=== PATIENT | female | born 1985 | race Asian ===

== ENCOUNTER 2018-01-07 04:40 | Inpatient (IN) | payer SELFPAY ==
[~2018-01-07] VITALS: Ht 157.5 cm; Wt 68.9 kg
[2018-01-07] MEDS ORDERED: OXYTOCIN/0.9 % SODIUM CHLORIDE 1,000 ML IV ONE ×2 (04:59→07:17)
[2018-01-07] MEDS ORDERED: AMPICILLIN SODIUM 2 GM in NS 100 ML IV ONE (05:00)
[2018-01-07] MEDS ORDERED: AMPICILLIN SODIUM 2 GM VIAL ONE (05:01)
[2018-01-07] MEDS ORDERED: LR 1,000 ML IV SCH (06:40)
[2018-01-07] MEDS ORDERED: OXYTOCIN/0.9 % SODIUM CHLORIDE 1,000 ML IV SCH (06:40)
[2018-01-07] MEDS ORDERED: LR 1,000 ML IV ONE (06:40)
[2018-01-07] MEDS ORDERED: LR 500 ML IV ONE (06:40)
[2018-01-07] MEDS ORDERED: NALBUPHINE HCL 10 MG/ML AMP IM PRN (06:45)
[2018-01-07] MEDS ORDERED: TERBUTALINE SULFATE 1 MG/ML VIAL SUBCUT ONE (06:45)
[2018-01-07] MEDS ORDERED: METHYLERGONOVINE MALEATE 0.2 MG TABLET PO PRN (07:30)
[2018-01-07] MEDS ORDERED: RHO(D) IMMUNE GLOBULIN/MALTOSE 1500 UNITS/1.3 ML (WINHRO) IM PRN (07:30)
[2018-01-07] MEDS ORDERED: DOCUSATE SODIUM 100 MG CAPSULE PO PRN (07:30)
[2018-01-07] MEDS ORDERED: DERMOPLAST SPRAY TP PRN (07:30)
[2018-01-07] MEDS ORDERED: DIPH-TET-PERTUS Vaccine 0.5 ML VIAL (ADACEL) I.M. PRN (07:30)
[2018-01-07] MEDS ORDERED: LANOLIN 7 GM OINT. TP PRN (07:30)
[2018-01-07] MEDS ORDERED: HYDROCORTISONE 0.5%, 28.35 GM TOPICAL CREAM TP PRN (07:30)
[2018-01-07] MEDS ORDERED: MEASLES,MUMPS&RUBELLA VACC/PF 12500 UNIT/0.5 ML VIAL SUBQ PRN (07:30)
[2018-01-07] MEDS ORDERED: OXYCODONE/ACETAMINOPHEN 5-325 TABLET PO PRN ×2 (07:30)
[2018-01-07] MEDS ORDERED: HYDROcodone/ACETAMIN 5-325 MG TAB (NORCO/ VICODIN) PO PRN (07:30)
[2018-01-07 07:32] LABS: HEMATOCRIT 36.6 % (36-48); HEMOGLOBIN 12.2 g/dL (12.0-16.0); MEAN CORPUSCULAR HEMOGLOBIN 29 pg (27-31); MEAN CORPUSCULAR HGB CONC 34 % (32-36); MEAN CORPUSCULAR VOLUME 88 fL (79.0-98.0); PLATELET COUNT (AUTO) 201 K/uL (130-430); RED BLOOD CELL COUNT(AUTO) 4.18 MIL/uL (4.2-6.2); RED CELL DISTRIBUTION WIDTH 12.3 % (9.0-15.0); WHITE BLOOD COUNT (AUTO) 15.4 K/uL (4.8-10.8)
[2018-01-07 09:53] LABS: BAND % (MANUAL) 5 % (0-6); BASOPHILS % (MANUAL) 0 % (0-2); EOSINOPHILS % (MANUAL) 0 % (0-7); LYMPHOCYTES % (MANUAL) 6 % (20-46); MONOCYTES % (MANUAL) 5 % (0-11)
[2018-01-07] MEDS: IBUPROFEN 600 MG TABLET PO SCH ×2 (12:08→18:09)
[2018-01-07 20:43] VITALS: BP_SYST 118
[2018-01-08] MEDS: IBUPROFEN 600 MG TABLET PO SCH ×2 (06:16)
[2018-01-08 07:56] LABS: HEMATOCRIT 30.6 % (36-48); HEMOGLOBIN 10.2 g/dL (12.0-16.0)
[2018-01-09] MEDS: IBUPROFEN 600 MG TABLET PO SCH
== END 2018-01-09 11:00 | disposition home or self-care (01) | DRG 775 ==
LOC: OBSVTOIN 04:40 → SPU 04:40
PROVIDERS: ADMIT Obstetrics & Gynecology; ATTEND Obstetrics & Gynecology
PROC: 10E0XZZ Delivery of Products of Conception, External Approach (ICD-10-PCS; principal; 2018-01-07)
PROC: 0W8NXZZ Division of Female Perineum, External Approach (ICD-10-PCS; 2018-01-07)
DX: O80 Encounter for full-term uncomplicated delivery (principal); Z3A.38 38 weeks gestation of pregnancy; Z37.0 Single live birth
CPT/HCPCS: 36415; 85007; 85018-TC; 85027; 86886; 86900; 86901; J0290; J2590